=== PATIENT | female | born 1995 | race Caucasian/White ===

== ENCOUNTER 2023-11-05 23:41 | Emergency (ER) | payer MEDICAID ==
[~2023-11-05] VITALS: Ht 170.2 cm; Wt 75.0 kg
[2023-11-05 23:43] VITALS: O2SAT 99
[2023-11-06] MEDS: IBUPROFEN 600MG TABLET PO ONE (01:45)
[2023-11-06] MEDS ORDERED: IBUP-2029 MT (02:55)
[2023-11-06 03:13] VITALS: BP 125/76; PULSE 91; RESP 14; TEMP 98.2
== END 2023-11-06 03:16 | disposition home or self-care (01) ==
LOC: ER 23:41
DX: S80.12XA Contusion of left lower leg, initial encounter (principal); X58.XXXA Exposure to other specified factors, initial encounter; Y93.89 Activity, other specified; Y92.89 Other specified places as the place of occurrence of the external cause; Y99.8 Other external cause status
CPT/HCPCS: 73590; 99283